=== PATIENT | female | born 1985 | race Caucasian/White ===

== ENCOUNTER 2016-12-02 16:31 | Emergency (ER) | payer OTHER ==
[~2016-12-02] VITALS: Ht 167.6 cm; Wt 65.8 kg
[~2016-12-02 16:31] MED LIST: AMOXICILLIN500 MG PO; ANAPROX DS550 MG PO; AUGMENTIN 875-875 MG PO; CEFUROXIME AXE250 MG PO; CIPRODEX 0.3%-7.5 ML OT; CIPROFLOXACIN500 MG PO; Fioricet 325 MG1 TAB PO; HYDROCODONE BIT1 T11 PO; PREDNISONE10 MG PO; ZOFRAN ODT4 MG SL
[2016-12-02] MEDS ORDERED: AUGMENTIN 875-875 MG PO (16:51)
== END 2016-12-02 17:11 | disposition home or self-care (01) ==
LOC: ED 16:31
DX: H66.92 Otitis media, unspecified, left ear (principal); Z88.8 Allergy status to other drugs, medicaments and biological substances; Z91.013 Allergy to seafood

== ENCOUNTER 2019-11-09 13:20 | Emergency (ER) | payer OTHER ==
[~2019-11-09] VITALS: Ht 167.6 cm; Wt 70.3 kg
[2019-11-09] MEDS ORDERED: NORCO 10-325 T1 EACH PO (13:39)
[2019-11-09] MEDS ORDERED: AMOXICILLIN500 M2 PO (13:39)
[2019-11-09] MEDS ORDERED: CLINDAMYCIN HC300 MG PO ×2 (13:39→13:42)
== END 2019-11-09 14:20 | disposition home or self-care (01) ==
LOC: ED 13:20
DX: K02.9 Dental caries, unspecified (principal); Z88.8 Allergy status to other drugs, medicaments and biological substances; Z91.013 Allergy to seafood; Z79.2 Long term (current) use of antibiotics